=== PATIENT | male | born 1965 | race Caucasian/White ===

== ENCOUNTER 2018-10-10 11:50 | Emergency (ER) | payer BC, OTHER ==
[~2018-10-10] VITALS: Ht 182.9 cm; Wt 98.0 kg
[2018-10-10 13:14] LABS: Basophils # (auto) 0 uL; Basophils % (auto) 0.7 % (0.0-2.0); Eosinophils # (auto) 0.2 uL; Hematocrit 43.6 % (41.0-53.0); Lymphocytes # (auto) 2.2 uL; Mean Corpuscular Hemoglobin 32.2 pg (28.0-32.0); Mean Corpuscular Hgb Conc. 34.4 g/dL (32.0-36.0); Mean Corpuscular Volume 93.6 fL (80.0-100.0); Monocytes # (auto) 0.4 uL; Neutrophils # (auto) 3.5 uL; Neutrophils % (auto) 55.3 % (37.0-80.0); Platelet Count (auto) 191 10^3/uL (140-450); Red Blood Cells 4.66 10^6/uL (4.5-5.90); Red Cell Distribution Width 12.4 % (11.8-14.3); White Blood Cell 6.4 10^3/uL (4.4-10.8)
[2018-10-10 13:34] LABS: Albumin 3.7 g/dL (3.4-5.0); Calcium 8.3 mg/dL (8.5-10.1); Potassium 4.1 mmol/L (3.5-5.1)
[2018-10-10 13:38] LABS: BUN/Creatinine Ratio 13.5; Bilirubin, Total 0.7 mg/dL (0.2-1.0)
[2018-10-10 13:51] LABS: INR > 10 (0.9-1.15)
[2018-10-10] MEDS ORDERED: PHYTONADIONE ORAL Susp 10 mg/10ml PO ONE (14:15)
[2018-10-10 14:58] VITALS: BP 132/74
== END 2018-10-10 15:40 | disposition short-term general hospital (02) ==
LOC: ER 11:50
DX: D68.32 Hemorrhagic disorder due to extrinsic circulating anticoagulants (principal); R79.9 Abnormal finding of blood chemistry, unspecified; I48.91 Unspecified atrial fibrillation; E11.9 Type 2 diabetes mellitus without complications; Z76.0 Encounter for issue of repeat prescription
CPT/HCPCS: 36415; 80053; 85025; 85610; 85730; 99285; J3430

== ENCOUNTER 2023-10-19 16:33 | Emergency (ER) | payer OTHER ==
[~2023-10-19] VITALS: Ht 182.9 cm; Wt 99.1 kg
[2023-10-19 16:56] LABS: Basophils # (auto) 0 10 ^3/uL (0-0.2); Basophils % (auto) 0.6 % (0.0-2.0); Eosinophils # (auto) 0.1 10 ^3/uL (0-0.8); Eosinophils % (auto) 1.3 % (0.0-7.0); Hematocrit 44.4 % (41.0-53.0); Hemoglobin 15.1 g/dL (13.5-17.5); Lymphocytes # (auto) 2.6 10 ^3/uL (0.4-5.4); Lymphocytes % (auto) 30.1 % (10.0-50.0); Mean Corpuscular Hemoglobin 32.1 pg (28.0-32.0); Mean Corpuscular Hgb Conc. 33.9 g/dL (32.0-36.0); Mean Corpuscular Volume 94.6 fL (80.0-100.0); Monocytes # (auto) 0.4 10 ^3/uL (0-1.3); Monocytes % (auto) 5.2 % (0.0-12.0); Neutrophils # (auto) 5.4 10 ^3/uL (1.6-8.6); Neutrophils % (auto) 62.8 % (37.0-80.0); Red Cell Distribution Width 12.7 % (11.8-14.3); White Blood Cell 8.6 10^3/uL (4.4-10.8)
[2023-10-19 17:13] LABS: Alanine Aminotransferase 33 U/L (7-40); Albumin 4.5 g/dL (3.2-4.8); Alkaline Phosphatase 98 U/L (46-116); Anion Gap 3 (5-15); Aspartate Aminotransferase 24 U/L (13-40); BUN/Creatinine Ratio 8.8 (10.0-20.0); Blood Urea Nitrogen 8 mg/dL (9-23); Calcium 9.6 mg/dL (8.7-10.4); Carbon Dioxide 28 mmol/L (20-30); Chloride 105 mmol/L (98-107); Glucose 166 mg/dL (74-106); Potassium 4.1 mmol/L (3.5-5.1); Sodium 136 mmol/L (136-145)
[2023-10-19 17:14] LABS: Bilirubin, Total 0.8 mg/dL (0.2-1.0); Total Protein 6.7 g/dL (5.7-8.2)
[2023-10-20 02:32] VITALS: BP 128/77; PULSE 101; RESP 20; TEMP 98.4; O2SAT 97
== END 2023-10-20 02:46 | disposition home or self-care (01) ==
LOC: ER 16:33
DX: R00.2 Palpitations (principal); E11.9 Type 2 diabetes mellitus without complications; I48.91 Unspecified atrial fibrillation
CPT/HCPCS: 36415; 71045; 80053; 84484; 85025; 93005